=== PATIENT | female | born 1960 | race Caucasian/White ===

== ENCOUNTER → 2017-01-25 | Outpatient (CLI) | payer BC ==
--- NOTE | 2017-01-25 13:40 | DIAGNOSTIC IMAGING REPORT ---
MRI OF THE LEFT ANKLE WITHOUT IV CONTRAST CLINICAL HISTORY: Left ankle pain. COMPARISON STUDY: No priors. TECHNIQUE: MRI of the left ankle is performed utilizing various T1 and T2-weighted sequences in the axial, sagittal, and coronal planes. IV contrast was not administered for this examination. Note that interpretation is suboptimal without plain film correlate. FINDINGS: Normal marrow signal intensity is preserved throughout the visualized bony structures. There is no MRI evidence of fracture. No osteochondral defect is identified in the talar dome. There is maintenance of normal fat within the sinus tarsi. The Achilles tendon is thickened and tendinotic. This measures up to 1.6 cm in AP diameter and is located at the level of the marker indicated by the patient. There are foci of less than 50% partial-thickness tearing. There is trace fluid within the retrocalcaneal bursa and minimal edema within Kager's fat pad. The anterior, posterior, and peroneal tendons appear intact. Visualized portions of the plantar fascia are normal in appearance. The anterior talofibular and anterior tibiofibular ligaments are preserved. The deltoid and spring ligaments are intact as imaged. IMPRESSION: 1. The Achilles tendon is thickened and tendinotic. There are small foci of less than 50% thickness tearing, and this is located at the site of interest indicated by the patient. 2. No bony abnormality is identified. 3. Fluid is noted in the retrocalcaneal bursa and there is associated edema within Kager's fat pad. Dictated: 01/25/2017 1:17 PM Transcribed: 01/25/2017 1:40 PM [email or web address] Electronically signed by: Yahir Montes De Oca M.D. 01/25/2017 2:00 PM Dictated Date/Time: 01/25/2017 1:17 PM
== END | disposition home or self-care (01) ==
LOC: C.MRI 07:19
PROVIDERS: ATTEND Physician Assistant
DX: M66.872 Spontaneous rupture of other tendons, left ankle and foot (principal)

== ENCOUNTER → 2017-05-21 | Outpatient (CLI) | payer BC ==
--- NOTE | 2017-05-21 12:10 | DIAGNOSTIC IMAGING REPORT ---
THYROID ULTRASOUND HISTORY: R13.10 Dysphagia [id number] COMPARISON: None. FINDINGS: Right lobe: 4.4 x 2.5 x 2.3 cm. Heterogeneous gland with a dominant solid 2.1 cm nodule at the interpolar region. This demonstrates a hypoechoic halo. Left lobe: 4.9 x 2.0 x 2.0 cm. Heterogeneous thyroid gland with a few nodules with the largest measuring 1.2 cm. These do not meet radiographic criteria for biopsy. A 9 mm nodule within the lower pole demonstrates a calcified rim and is therefore likely benign. Isthmus: 4 mm in thickness. No nodules. IMPRESSION: Multinodular thyroid gland. Dominant 2.1 cm nodule within the right thyroid lobe. Recommend ultrasound-guided fine-needle aspiration of this nodule. Electronically signed by: Param Mcdonald M.D. 05/21/2017 12:08 PM Dictated Date/Time: 05/21/2017 12:06 PM
== END | disposition home or self-care (01) ==
LOC: C.ULTR 10:28
PROVIDERS: ATTEND Internal Medicine Endocrinology, Diabetes & Metabolism
DX: R13.10 Dysphagia, unspecified (principal); E04.2 Nontoxic multinodular goiter

== ENCOUNTER → 2017-05-28 | Outpatient (CLI) | payer BC ==
--- NOTE | 2017-05-28 11:07 | DIAGNOSTIC IMAGING REPORT ---
GUIDANCE NEEDLE PLACEMENT CLINICAL HISTORY: MULTINODULAR THYROID mass TECHNIQUE: Ultrasound guided thyroid aspiration COMPARISON STUDY: 05/21/2017 FINDINGS: Following description of procedure and informed consent, a single pass with a 25-gauge needle was made to the dominant nodule of the right thyroid. Pathology indicated initially adequate cellularity for diagnosis. There are no complications. IMPRESSION: Successful right thyroid needle aspiration. No complications. Pathology is pending. The above report was generated using voice recognition software. It may contain grammatical, syntax or spelling errors. Electronically signed by: Jay Buck M.D. 05/28/2017 11:05 AM Dictated Date/Time: 05/28/2017 11:05 AM
== END | disposition home or self-care (01) ==
LOC: C.ULTR 09:34
PROVIDERS: ATTEND Internal Medicine Endocrinology, Diabetes & Metabolism
DX: E04.2 Nontoxic multinodular goiter (principal)

== ENCOUNTER → 2017-10-31 | Outpatient (CLI) | payer OTHER ==
--- NOTE | 2017-10-31 08:32 | DIAGNOSTIC IMAGING REPORT ---
L LOWER EXT JOINT WITHOUT CLINICAL HISTORY: ANKLE PAIN pain TECHNIQUE: MRI multi axial acquisition COMPARISON STUDY: 01/25/2017 FINDINGS: Findings of persistent mild/moderate Achilles tendinopathy. No well-defined tear. Mild edematous change about the posterior tibial tendon. Mild tendinopathy is present. No major tear. All major osseous structures show unremarkable signal characteristics. Subtalar joint is intact. All remaining ligamentous and tendinous structures are unremarkable. The collateral ligaments structures are intact. IMPRESSION: 1. Mild/moderate Achilles tendinopathy. 2. No evidence for significant tear. 3. Mild tendinopathy of the posterior tibial tendon 4. Study is otherwise unremarkable. The above report was generated using voice recognition software. It may contain grammatical, syntax or spelling errors. Electronically signed by: Jay Buck M.D. 10/31/2017 8:31 AM Dictated Date/Time: 10/31/2017 8:23 AM
== END | disposition home or self-care (01) ==
LOC: C.MRI 07:33
PROVIDERS: ATTEND Podiatrist Foot & Ankle Surgery
DX: M25.572 Pain in left ankle and joints of left foot (principal); M76.62 Achilles tendinitis, left leg